=== PATIENT | male | born 1985 | race Caucasian/White ===

== ENCOUNTER 2018-11-12 22:49 | Emergency (ER) | payer MEDICAID ==
[~2018-11-12] VITALS: Ht 180.3 cm; Wt 77.1 kg
--- NOTE | 2018-11-12 22:49 | NUR ---
PT BIBA BLS AT THIS TIME
[2018-11-12 22:52] VITALS: BP 119/58
--- NOTE | 2018-11-12 22:53 | NUR ---
PT TRIAGED AND SENT TO LOBBY TO WAIT FOR A BED.
== END 2018-11-12 23:30 | disposition left against medical advice (07) ==
LOC: MED 22:49
DX: E86.0 Dehydration (principal); Z53.21 Procedure and treatment not carried out due to patient leaving prior to being seen by health care provider

== ENCOUNTER 2019-08-26 00:31 | Emergency (ER) | payer MEDICAID, OTHER ==
[~2019-08-26] VITALS: Ht 177.8 cm; Wt 90.7 kg
[2019-08-26 00:40] VITALS: BP 137/82
--- NOTE | 2019-08-26 00:40 | NUR ---
TO [facility] BED AMBULATORY NASAL SWAB SENT TO LAB
--- NOTE | 2019-08-26 01:02 | NUR ---
PT TAKEN TO BED 7
--- NOTE | 2019-08-26 01:07 | NUR ---
34/M C/O PRODUCTIVE COUGH, NAUSEA WITHOUT VOMITING, NASAL CONGESTION AND RHINORRHEA, CHILLS X 2 DAYS HX- DENIES
--- NOTE | 2019-08-26 01:29 | NUR ---
Dr. Martínez examining patient.
[2019-08-26] MEDS ORDERED: LORazepam 1 MG TAB PO ONE (01:40)
[2019-08-26] MEDS ORDERED: KETOROLAC 30 MG/ML VIAL IM ONE (01:40)
[2019-08-26 01:54] LABS: BARBITURATE, URINE NEG. ng/ml (NEG <=200); BENZODIAZEPINE, URINE NEG. ng/mL (NEG <=200); CANNABINOID, URINE NEG. ng/mL (NEG <=50); COCAINE, URINE NEG. ng/mL (NEG <=300); OPIATE, URINE NEG. ng/mL (NEG <=2000); PHENCYCLIDINE SCREEN,URINE NEG. ng/mL (NEG <=25)
--- NOTE | 2019-08-26 03:23 | NUR ---
CALLED FOR GEAR TOOTH LAPPING MACHINE OPERATOR, NO ANSWER, LEFT BRENNA
--- NOTE | 2019-08-26 03:25 | NUR ---
PATIENT GIVEN SUBSTANCE ABUSE PACKET, ATTEMPTED TO PROVIDE EDUCATION PATIENT REFUESED EDUCATION.
--- NOTE | 2019-08-26 03:30 | NUR ---
PT ACTING INAPROPRIATE, SPITTING ON THE FLOOR, REFUSING TO LEAVE THE ER. SECURITY WAS CALLED AFTER FAILED ATTEMPTS TO ASK HIM TO STOP SPITTING ON FLOOR.
--- NOTE | 2019-08-26 03:30 | NUR ---
CALLED FOR FIBROUS WALLBOARD INSPECTOR, LEFT BRENNA.
--- NOTE | 2019-08-26 03:30 | NUR ---
PATIENT REFUESING TO LEAVE BED, SPITTING ON THE FLOOR AND YELLING AT NURSE BECAUSE HE DOES NOT WANT TO BE DISCHARGED, HE WANTS TO STAY IN THE BED.
--- NOTE | 2019-08-26 03:32 | NUR ---
PATIENT ESCORTED TO LOBBY BY SECURITY WITH STEADY GAIT.
[2019-08-26 03:34] VITALS: BP 137/82
--- NOTE | 2019-08-26 03:35 | NUR ---
Written and verbal after care instructions given and explained. Patient did not state understanding. Patient alert, oriented and verbalized understanding of instructions. Ambulatory with steady gait. ID band removed. Patient advised to follow up with PMD. Rx of naprosyn, robutussin given. Patient educated on indication of medication including possible reaction and side effects. Patient did not state understanding
== END 2019-08-26 03:35 | disposition home or self-care (01) ==
LOC: MED 00:31
DX: J06.9 Acute upper respiratory infection, unspecified (principal); F17.210 Nicotine dependence, cigarettes, uncomplicated; R42 Dizziness and giddiness; Z71.6 Tobacco abuse counseling
CPT/HCPCS: 80305; 87804; 96372; 99283; J1885

== ENCOUNTER 2020-11-04 21:28 | Emergency (ER) | payer OTHER ==
[~2020-11-04] VITALS: Ht 180.3 cm; Wt 95.3 kg
[2020-11-04 21:30] VITALS: BP 134/87
--- NOTE | 2020-11-04 21:30 | NUR ---
35Y/O MALE BIBA DUE TO CHEST PAIN. PT STATES THAT HE WAS EATING MEAT AND SANDWICH WHEN HE STARTED TO FEEL PALPITATIONS, CHEST PAIN OF 10/10 THAT RADIATES TO LEFT SIDE OF THE BODY. PT STATES THAT HE ALSO VOMITTED X1 AFTER EATING THE FOOD. PMH: DENIES NKA
--- NOTE | 2020-11-04 21:32 | NUR ---
BIBA TO ER BED 5
--- NOTE | 2020-11-04 21:36 | NUR ---
EKG PERFORMED AT BEDSIDE. EKG READS SINUS TACHYCARDIA @ 114
--- NOTE | 2020-11-04 21:57 | NUR ---
DR MONTEMAYOR AT BEDSIDE EXAMINING PT
[2020-11-04] MEDS ORDERED: NACL 0.9% 1,000 ML IV ONE (22:05)
--- NOTE | 2020-11-04 22:08 | NUR ---
XRAY AT BEDSIDE
--- NOTE | 2020-11-04 22:16 | NUR ---
LAB AT BEDSIDE
--- NOTE | 2020-11-04 22:29 | NUR ---
PT TAKEN TO CT SCAN VIA W/C
[2020-11-04 22:31] LABS: BASOPHILS # (AUTO) 0.2 K/uL (0.00-0.22); BASOPHILS % (AUTO) 1.3 % (0.0-2.0); HEMATOCRIT 49.6 % (36-52); HEMOGLOBIN 17.3 g/dL (12.0-18.0); LYMPHOCYTES # (AUTO) 1.9 K/uL (2.0-11.5); LYMPHOCYTES % (AUTO) 14.3 % (20.5-51.1); MEAN CORPUSCULAR HEMOGLOBIN 32 pg (27-31); MEAN CORPUSCULAR HGB CONC 35 g/dL (33-37); MEAN CORPUSCULAR VOLUME 92.8 fL (80-94); MONOCYTES # (AUTO) 1.4 K/uL (0.8-1.0); MONOCYTES % (AUTO) 10.8 % (1.7-9.3); NEUTROPHILS # (AUTO) 9.5 K/uL (1.8-7.7); NEUTROPHILS % (AUTO) 73.6 % (42.2-75.2); PLATELET COUNT (AUTO) 231 K/uL (140-450); RED BLOOD CELL COUNT(AUTO) 5.34 MIL/uL (4.20-6.10); RED CELL DISTRIBUTION WIDTH 13.3 % (11.6-13.7); WHITE BLOOD COUNT (AUTO) 12.9 K/uL (4.8-10.8)
--- NOTE | 2020-11-04 22:34 | NUR ---
ATTEMPTED TO PUT AN IV ON PT; PT REFUSED TREATMENT
--- NOTE | 2020-11-04 22:34 | NUR ---
PT RETURNED FROM CT
--- NOTE | 2020-11-04 22:35 | NUR ---
Edna yang in [facility] - 11/04/20 at 2245 by [facility] report called to Moises rn
--- NOTE | 2020-11-04 22:35 | NUR ---
report called to kellen De Leon
[2020-11-04 22:44] LABS: LIPASE 63 U/L (73-393)
[2020-11-04] MEDS ORDERED: ONDANSETRON 4 MG ODT PO ONE (22:45)
[2020-11-04] MEDS ORDERED: HYDROcodone/APAP 5/325 MG 1 TAB TAB PO ONE (22:45)
--- NOTE | 2020-11-04 22:45 | NUR ---
URINE SAMPLE WALKED TO LAB, HANDED TO DAYTON JENKINS
[2020-11-04 22:49] LABS: ALBUMIN 4.5 g/dL (3.4-5.0); ANION GAP 14.9 (8-16); CARBON DIOXIDE 27.9 mmol/L (21-32); CREATININE 1.1 mg/dL (0.6-1.3); POTASSIUM 3.8 mmol/L (3.5-5.1); TOTAL BILIRUBIN 2.2 mg/dL (0.0-1.0)
[2020-11-04 22:49] LABS: APPEARANCE,URINE SL CLOUDY (CLEAR); BILIRUBIN,URINE 1+ (NEGATIVE); BLOOD, URINE NEGATIVE (NEGATIVE); COLOR,URINE YELLOW (YELLOW); LEUKOCYTE ESTERASE ,URINE NEGATIVE (NEGATIVE); NITRITE, URINE NEGATIVE (NEGATIVE); UGLUCOSE NEGATIVE (NEGATIVE)
[2020-11-04] MEDS ORDERED: ONDA4TAB PO (22:52)
[2020-11-04] MEDS ORDERED: ACET-8386 PO (22:52)
[2020-11-04 23:04] LABS: BARBITURATE, URINE NEGATIVE ng/ml (NEG <=200); BENZODIAZEPINE, URINE NEGATIVE ng/mL (NEG <=200); CANNABINOID, URINE NEGATIVE ng/mL (NEG <=50); COCAINE, URINE NEGATIVE ng/mL (NEG <=300); OPIATE, URINE NEGATIVE ng/mL (NEG <=2000); PHENCYCLIDINE SCREEN,URINE NEGATIVE ng/mL (NEG <=25)
[2020-11-04 23:20] VITALS: BP 134/87
--- NOTE | 2020-11-04 23:20 | NUR ---
Patient discharged with v/s stable. Written and verbal after care instructions given and explained. Patient alert, oriented and verbalized understanding of instructions. Ambulatory with steady gait. All questions addressed prior to discharge. ID band removed. Patient advised to follow up with PMD. Rx of HYDROCODONE-ACETAMINOPHEN AND ZOFRAN given. Patient educated on indication of medication including possible reaction and side effects. Opportunity to ask questions provided and answered.
== END 2020-11-04 23:20 | disposition home or self-care (01) ==
LOC: MED 21:28
DX: R07.9 Chest pain, unspecified (principal); R51.9 Headache, unspecified; R11.2 Nausea with vomiting, unspecified; R19.7 Diarrhea, unspecified; F41.9 Anxiety disorder, unspecified
CPT/HCPCS: 36415; 70450; 71045; 80053; 80305; 81003; 83690; 83880; 84484; 85025; 93005; 99285; G0482; Q0162